=== PATIENT | male | born 1940 | race Caucasian/White ===

== ENCOUNTER → 2016-05-27 | Day surgery (SDC) | payer MEDICARE ==
[2015-12-08 20:30] VITALS: BP 121/76
[~2016-05-27] MED LIST: ACETAMINOPHEN-H1 TA2 PO; ASPIRIN ADULT L81 M3 PO; ATIVAN 0.50.5 MG/TAB PO; INDOMETHACIN50 M2 PO; LIPITOR 40MG TA40 MG PO; LISINOPRIL10 MG PO; METOPROLOL SUCC50 M1 PO; PLAVIX 75MG TAB75 MG PO; PREDNISONE20 M1 PO; ULTRAM50 M1 PO; ZYLOPRIM 100MG100 MG PO
== END ==
LOC: MSO 08:57
DX: K57.31 Diverticulosis of large intestine without perforation or abscess with bleeding (principal); I10 Essential (primary) hypertension; F17.210 Nicotine dependence, cigarettes, uncomplicated
CPT/HCPCS: 00810; J3010; J7120

== ENCOUNTER 2016-10-16 02:27 | Emergency (ER) | payer MEDICARE ==
[~2016-10-16] VITALS: Ht 180.3 cm; Wt 65.0 kg
[~2016-10-16 02:27] MED LIST changes: -ACETAMINOPHEN-H1 TA2 PO; -INDOMETHACIN50 M2 PO; -METOPROLOL SUCC50 M1 PO; -ZYLOPRIM 100MG100 MG PO
[2016-10-16] MEDS ORDERED: INDOMETHACIN50 M2 PO (02:49)
[2016-10-16] MEDS ORDERED: METOPROLOL SUCC50 M1 PO (02:49)
[2016-10-16] MEDS ORDERED: ACETAMINOPHEN-H1 TA2 PO (02:50)
[2016-10-16] MEDS ORDERED: ZYLOPRIM 100MG100 MG PO (02:50)
[2016-10-16 07:00] VITALS: BP 131/67
== END 2016-10-16 06:41 | disposition short-term general hospital (02) ==
LOC: ED 02:27
DX: K13.79 Other lesions of oral mucosa (principal); Z85.819 Personal history of malignant neoplasm of unspecified site of lip, oral cavity, and pharynx; I10 Essential (primary) hypertension; M10.9 Gout, unspecified; Z79.02 Long term (current) use of antithrombotics/antiplatelets
CPT/HCPCS: J0461; J2270; J7030

== ENCOUNTER 2016-10-29 14:24 | Emergency (ER) | payer MEDICARE ==
[~2016-10-29] VITALS: Ht 180.3 cm; Wt 62.7 kg
[~2016-10-29 14:24] MED LIST changes: +ACETAMINOPHEN-H1 TA2 PO; +INDOMETHACIN50 M2 PO; +METOPROLOL SUCC50 M1 PO; +ZYLOPRIM 100MG100 MG PO
[2016-10-29] MEDS ORDERED: COLACE100 M1 PO (14:52)
[2016-10-29] MEDS ORDERED: PERI-COLACE 501 TAB PO (14:52)
[2016-10-29] MEDS ORDERED: PREDNISONE20 M1 PO (15:16)
[2016-10-29 15:44] VITALS: BP 112/68
== END 2016-10-29 15:35 | disposition home or self-care (01) ==
LOC: ED 14:24
DX: C06.9 Malignant neoplasm of mouth, unspecified (principal); R22.0 Localized swelling, mass and lump, head; I10 Essential (primary) hypertension; M10.9 Gout, unspecified; E78.5 Hyperlipidemia, unspecified; Z93.1 Gastrostomy status
CPT/HCPCS: A4322; J7512

== ENCOUNTER 2016-11-06 10:32 | Emergency (ER) | payer MEDICARE ==
[~2016-11-06 10:32] MED LIST changes: +COLACE100 M1 PO; +PERI-COLACE 501 TAB PO
[2016-11-06] MEDS ORDERED: PREDNISONE20 M1 PO (12:23)
[2016-11-06 12:30] VITALS: BP 119/51
== END 2016-11-06 12:45 | disposition home or self-care (01) ==
LOC: ED 10:32
DX: C06.9 Malignant neoplasm of mouth, unspecified (principal); R22.0 Localized swelling, mass and lump, head; I10 Essential (primary) hypertension; R59.0 Localized enlarged lymph nodes; F17.210 Nicotine dependence, cigarettes, uncomplicated; D64.9 Anemia, unspecified; E83.42 Hypomagnesemia; E46 Unspecified protein-calorie malnutrition